=== PATIENT | female | born 1980 | race Asian ===

== ENCOUNTER 2021-06-16 09:00 | Emergency (ER) | payer OTHER ==
[~2021-06-16] VITALS: Ht 154.9 cm; Wt 90.9 kg
[2021-06-16 09:37] LABS: BASOPHILS % (AUTO) 0.5 % (0.0-2.0); HEMATOCRIT 43.3 % (36-46); HEMOGLOBIN 14.4 g/dL (12.0-16.0); LYMPHOCYTES # (AUTO) 2.1 K/uL (1.0-4.8); LYMPHOCYTES % (AUTO) 24.7 % (22.0-44.0); MEAN CORPUSCULAR HEMOGLOBIN 28.8 pg (26.0-34.0); MEAN CORPUSCULAR HGB CONC 33.2 G/dL (31.0-37.0); MEAN CORPUSCULAR VOLUME 87 fL (80-100); MONOCYTES # (AUTO) 0.5 K/uL (0.1-1.0); NEUTROPHILS # (AUTO) 5.7 K/uL (1.8-7.7); NEUTROPHILS % (AUTO) 66.8 % (40.0-70.0); PLATELET COUNT (AUTO) 351 K/uL (150-450); RED BLOOD CELL COUNT(AUTO) 4.99 MIL/uL (4.00-5.20)
[2021-06-16 10:52] LABS: FREE T4 (FREE THYROXINE) 0.88 ng/dL (0.76-1.46); THYROID STIMULATING HORMONE 4.73 uIU/mL (0.36-3.74)
[2021-06-16 11:34] LABS: ANION GAP 11 mmol/L (8-16); CALCIUM, TOTAL 9.4 mg/dL (8.8-10.5); CARBON DIOXIDE 28 mmol/L (22-29); CHLORIDE 101 mmol/L (98-107); CREATININE 0.89 mg/dL (0.60-1.30); GLOMERULAR FILTR. RATE CALC > 60 mL/min (>60); GLUCOSE,RANDOM 168 mg/dL (70-110); POTASSIUM 3.9 mmol/L (3.5-5.1); SODIUM SERUM 140 mmol/L (136-145); UREA NITROGEN, BLOOD 11 mg/dL (7-18)
[2021-06-16 11:51] LABS: ALANINE AMINOTRANSFERASE 41 U/L (12-78); ALBUMIN 3.9 g/dL (3.4-5.0); ALKALINE PHOSPHATASE 80 U/L (46-116); ASPARTATE AMINOTRANSFERASE 25 U/L (15-37); BILIRUBIN,TOTAL 0.4 mg/dL (0.1-1.0); TOTAL PROTEIN, SERUM 8.4 g/dL (6.4-8.2)
[2021-06-16] MEDS ORDERED: CloNIDine HCL 0.1 MG TABLET PO ONE ×2 (12:30→13:45)
[2021-06-16] MEDS ORDERED: AmLODIPine BESYLATE 5 MG TABLET PO ONE (12:30)
[2021-06-16 14:39] VITALS: BP 188/84
== END 2021-06-16 14:39 | disposition home or self-care (01) ==
LOC: EMS 09:03
DX: I10 Essential (primary) hypertension (principal); F17.210 Nicotine dependence, cigarettes, uncomplicated; Z85.72 Personal history of non-Hodgkin lymphomas; Z87.898 Personal history of other specified conditions
CPT/HCPCS: 80053; 84439; 84443; 84703; 85025; 93005; 99285

== ENCOUNTER 2021-06-16 15:56 | Inpatient (IN) | payer OTHER ==
[~2021-06-16] VITALS: Ht 154.9 cm; Wt 90.6 kg
[2021-06-16 16:56] LABS: BASOPHILS % (AUTO) 0.4 % (0.0-2.0); EOSINOPHILS % (AUTO) 1.9 % (1.0-6.0); HEMATOCRIT 44.3 % (36-46); HEMOGLOBIN 14.5 g/dL (12.0-16.0); LYMPHOCYTES % (AUTO) 26.7 % (22.0-44.0); MEAN CORPUSCULAR HEMOGLOBIN 28.7 pg (26.0-34.0); MEAN CORPUSCULAR HGB CONC 32.8 G/dL (31.0-37.0); MEAN CORPUSCULAR VOLUME 88 fL (80-100); PLATELET COUNT (AUTO) 344 K/uL (150-450); RED BLOOD CELL COUNT(AUTO) 5.06 MIL/uL (4.00-5.20); RED CELL DISTRIBUTION WIDTH 14.1 % (11.5-14.5)
[2021-06-16 16:57] LABS: LYMPHOCYTES # (AUTO) 2.4 K/uL (1.0-4.8); MONOCYTES # (AUTO) 0.5 K/uL (0.1-1.0); NEUTROPHILS # (AUTO) 6.1 K/uL (1.8-7.7)
[2021-06-16] MEDS ORDERED: SODIUM CHLORIDE 0.9% 100 ML ONE (17:00)
[2021-06-16] MEDS ORDERED: IOHEXOL 350 MG/ML 100 ML VIAL ONE (17:00)
[2021-06-16 17:09] LABS: ANION GAP 8 mmol/L (8-16); CALCIUM, TOTAL 9.8 mg/dL (8.8-10.5); CARBON DIOXIDE 28 mmol/L (22-29); CHLORIDE 100 mmol/L (98-107); CREATININE 1.05 mg/dL (0.60-1.30); GLOMERULAR FILTR. RATE CALC 59 mL/min (>60); GLUCOSE,RANDOM 297 mg/dL (70-110); POTASSIUM 3.7 mmol/L (3.5-5.1); SODIUM SERUM 136 mmol/L (136-145); UREA NITROGEN, BLOOD 11 mg/dL (7-18)
[2021-06-16 17:10] LABS: PROTHROMBIN TIME 10.5 SEC (9.4-11.6)
[2021-06-16] MEDS ORDERED: SODIUM CHLORIDE 0.9% 1,000 ML IV ONE (17:15)
[2021-06-16] MEDS ORDERED: LABETALOL HCL 5 MG/ML 20 ML VIAL IVP ONE (17:15)
[2021-06-16 17:19] LABS: ALANINE AMINOTRANSFERASE 40 U/L (12-78); ALBUMIN 3.9 g/dL (3.4-5.0); ALKALINE PHOSPHATASE 82 U/L (46-116); ASPARTATE AMINOTRANSFERASE 26 U/L (15-37); BILIRUBIN,TOTAL 0.4 mg/dL (0.1-1.0); HCG,QUANTITATIVE < 1 mIU/mL (0-6); TOTAL PROTEIN, SERUM 8.4 g/dL (6.4-8.2)
[2021-06-16] MEDS ORDERED: ASPIRIN 325 MG TABLET PO ONE (17:45)
[2021-06-16 17:52] LABS: COVID AG,FIA SOURCE NASOPHARYNGEAL
[2021-06-16] MEDS ORDERED: ACETAMINOPHEN 325 MG TABLET PO PRN (21:15)
[2021-06-16] MEDS ORDERED: INSULIN LISPRO 100 UNITS/ML SQ PRN (21:15)
[2021-06-16] MEDS ORDERED: MAGNESIUM HYDROXIDE SUSPENSION 30 ML UDCUP PO PRN (21:15)
[2021-06-16] MEDS ORDERED: ATORVASTATIN CALCIUM 20 MG TABLET PO SCH (21:15)
[2021-06-16] MEDS ORDERED: DEXTROSE 50%-WATER 25 GM/50 ML SYRINGE IVP PRN (21:15)
[2021-06-16] MEDS ORDERED: LISINOPRIL 10 MG TABLET PO SCH ×3 (21:30)
[2021-06-17] MEDS: HEPARIN SODIUM,PORCINE 5,000 UNITS/ML VIAL SQ SCH ×4 (00:03→23:20)
[2021-06-17 03:14] LABS: CHOL/HDL RATIO 5.4 (3.9-5.7); CHOLESTEROL 242 mg/dL (131-200); HDL CHOLESTEROL 45 mg/dL (40-60); LDL CHOL (CALC.) 153 mg/dL (0-130); TRIGLYCERIDES 221 mg/dL (15-150)
[2021-06-17] MEDS: FAMOTIDINE 20 MG TABLET PO SCH (08:04)
[2021-06-17] MEDS: ASPIRIN 81 MG CHEWABLE TABLET PO SCH (08:04)
[2021-06-17] MEDS ORDERED: LORazepam 2 MG/ML VIAL IVP ONE (08:45)
[2021-06-17] MEDS: AmLODIPine BESYLATE 5 MG TABLET PO SCH (09:18)
[2021-06-17] MEDS: ATORVASTATIN CALCIUM 20 MG TABLET PO SCH (09:18)
[2021-06-17] MEDS: INSULIN LISPRO 100 UNITS/ML SQ SCH ×3 (11:08→20:37)
[2021-06-17 11:13] LABS: GLUCOMETER DEV NAME(LOC) ERT.5; GLUCOSE,POINT OF CARE 191 MG/DL (70-110)
[2021-06-17 15:15] VITALS: BP 178/92
[2021-06-17 19:57] VITALS: BP 145/75
[2021-06-17] MEDS ORDERED: LISINOPRIL 20 MG TABLET PO SCH (21:00)
[2021-06-17 23:58] VITALS: BP 147/80
[2021-06-18 02:55] LABS: GLUCOMETER DEV NAME(LOC) 5S.2B; GLUCOSE,POINT OF CARE 185 MG/DL (70-110)
[2021-06-18 03:46] VITALS: BP 149/96
[2021-06-18] MEDS: INSULIN LISPRO 100 UNITS/ML SQ SCH ×2 (06:30→11:30)
[2021-06-18] MEDS: AmLODIPine BESYLATE 5 MG TABLET PO SCH (08:02)
[2021-06-18] MEDS: ASPIRIN 81 MG CHEWABLE TABLET PO SCH (08:02)
[2021-06-18] MEDS: HEPARIN SODIUM,PORCINE 5,000 UNITS/ML VIAL SQ SCH ×2 (08:02→15:20)
[2021-06-18] MEDS: FAMOTIDINE 20 MG TABLET PO SCH (08:02)
[2021-06-18 08:03] VITALS: BP 163/96
[2021-06-18] MEDS: ATORVASTATIN CALCIUM 20 MG TABLET PO SCH (08:03)
[2021-06-18 08:22] LABS: GLUCOMETER DEV NAME(LOC) 5S.2B; GLUCOSE,POINT OF CARE 134 MG/DL (70-110)
[2021-06-18 12:11] VITALS: BP 156/95
[2021-06-18 12:42] LABS: GLUCOMETER DEV NAME(LOC) 5S.1; GLUCOSE,POINT OF CARE 133 MG/DL (70-110)
[2021-06-18] MEDS ORDERED: LISI-894 PO (12:46)
[2021-06-18] MEDS ORDERED: METF-1211 PO (12:48)
[2021-06-18] MEDS ORDERED: AMLO-258 PO (12:49)
[2021-06-18] MEDS ORDERED: LANC-893 TP (12:59)
[2021-06-18] MEDS ORDERED: LANC1COM7 (13:04)
[2021-06-18] MEDS ORDERED: IBUPROFEN 800 MG TABLET PO ONE (15:15)
[2021-06-18 15:57] VITALS: BP 162/95
[2021-06-18 16:25] VITALS: BP 159/94
[2021-06-20 12:03] LABS: GLUCOMETER DEV NAME(LOC) 5N.3; GLUCOSE,POINT OF CARE 113 MG/DL (70-110)
== END 2021-06-18 16:55 | disposition home or self-care (01) | DRG 93 ==
LOC: EMS 16:03 → 5S 06-17 14:39
PROVIDERS: ADMIT Internal Medicine; ATTEND Internal Medicine
DX: R20.0 Anesthesia of skin (principal); E11.65 Type 2 diabetes mellitus with hyperglycemia; E66.01 Morbid (severe) obesity due to excess calories; F17.210 Nicotine dependence, cigarettes, uncomplicated; F40.240 Claustrophobia; Z20.822 Contact with and (suspected) exposure to COVID-19; E78.5 Hyperlipidemia, unspecified; I10 Essential (primary) hypertension; Z92.21 Personal history of antineoplastic chemotherapy; Z92.3 Personal history of irradiation; Z68.37 Body mass index [BMI] 37.0-37.9, adult; Z85.72 Personal history of non-Hodgkin lymphomas; Z90.49 Acquired absence of other specified parts of digestive tract
CPT/HCPCS: 70496; 70498; 70553; 71045; 80053; 80061; 82962; 83036; 83880; 84484; 84702; 85025; 85610; 85730; 86850; 86900; 86901; 92610; 93005; 93306; 93880; 99291; J1644; J1815; J2060; J3490; J7030; J7050; Q9967; 36415-L1; 36415-TC; 70450; 70450-TC

== ENCOUNTER 2021-06-19 23:04 | Inpatient (IN) | payer OTHER ==
[~2021-06-19] VITALS: Ht 154.9 cm; Wt 87.3 kg
[~2021-06-19 23:04] MED LIST: AMLO-258 PO; LANC-893 TP; LANC1COM7; LISI-894 PO; METF-1211 PO
[2021-06-19 23:43] LABS: BASOPHILS % (AUTO) 0.5 % (0.0-2.0); HEMATOCRIT 45.3 % (36-46); HEMOGLOBIN 14.8 g/dL (12.0-16.0); LYMPHOCYTES # (AUTO) 2.3 K/uL (1.0-4.8); MEAN CORPUSCULAR HEMOGLOBIN 28.3 pg (26.0-34.0); MEAN CORPUSCULAR HGB CONC 32.6 G/dL (31.0-37.0); MEAN CORPUSCULAR VOLUME 87 fL (80-100); MONOCYTES # (AUTO) 0.5 K/uL (0.1-1.0); MONOCYTES % (AUTO) 4.5 % (2.0-9.0); NEUTROPHILS # (AUTO) 8.9 K/uL (1.8-7.7); PLATELET COUNT (AUTO) 378 K/uL (150-450); RED BLOOD CELL COUNT(AUTO) 5.22 MIL/uL (4.00-5.20); RED CELL DISTRIBUTION WIDTH 13.7 % (11.5-14.5)
[2021-06-19 23:44] LABS: COVID AG,FIA SOURCE NASOPHARYNGEAL
[2021-06-19 23:53] LABS: ANION GAP 9 mmol/L (8-16); CARBON DIOXIDE 29 mmol/L (22-29); CHLORIDE 101 mmol/L (98-107); CREATININE 1.07 mg/dL (0.60-1.30); GLOMERULAR FILTR. RATE CALC 57 mL/min (>60); GLUCOSE,RANDOM 159 mg/dL (70-110); POTASSIUM 3.8 mmol/L (3.5-5.1); SODIUM SERUM 139 mmol/L (136-145); UREA NITROGEN, BLOOD 16 mg/dL (7-18)
[2021-06-20] LABS: INR 0.9 (0.9-1.1); PROTHROMBIN TIME 10.1 SEC (9.4-11.6)
[2021-06-20 00:04] LABS: ALANINE AMINOTRANSFERASE 65 U/L (12-78); ALBUMIN 4.3 g/dL (3.4-5.0); ALKALINE PHOSPHATASE 85 U/L (46-116); ASPARTATE AMINOTRANSFERASE 45 U/L (15-37); BILIRUBIN,TOTAL 0.4 mg/dL (0.1-1.0); HCG,QUANTITATIVE < 1 mIU/mL (0-6); TOTAL PROTEIN, SERUM 8.7 g/dL (6.4-8.2)
[2021-06-20 00:15] LABS: APPEARANCE,URINE CLEAR (CLEAR); BILIRUBIN,URINE NEGATIVE (NEGATIVE); GLUCOSE, URINE (UA) NEGATIVE (NEGATIVE); KETONES,URINE NEGATIVE (NEGATIVE); LEUKOCYTE ESTERASE ,URINE TRACE (NEGATIVE); NITRATE,URINE NEGATIVE (NEGATIVE); OCCULT BLOOD,URINE LARGE (NEGATIVE); PH,URINE 5.5 (5.0-8.0); PROTEIN,URINE TRACE (NEGATIVE); UROBILINOGEN,URINE 0.2 mg/dL (<=1.0)
[2021-06-20 00:18] LABS: RBC,URINE 26-50 /HPF (0-2); WBC,URINE 0-2 /HPF (0-5)
[2021-06-20 00:19] LABS: AMPHET/METH SCREEN,URINE NEGATIVE (NEGATIVE); BACTERIA,URINE Few /HPF (None Seen); BARBITURATE SCREEN, URINE NEGATIVE (NEGATIVE); BENZODIAZEPINES SCREEN,URINE NEGATIVE (NEGATIVE); CANNABINOID SCREEN,URINE NEGATIVE (NEGATIVE); COCAINE SCREEN,URINE NEGATIVE (NEGATIVE); METHADONE SCREEN, URINE NEGATIVE (NEGATIVE); OPIATE SCREEN,URINE NEGATIVE (NEGATIVE)
[2021-06-20 00:20] LABS: PHENCYCLIDINE SCREEN,URINE NEGATIVE (NEGATIVE)
[2021-06-20] MEDS ORDERED: ASPIRIN 325 MG DR TABLET PO ONE (00:45)
[2021-06-20] MEDS ORDERED: ONDANSETRON HCL 4 MG/2 ML VIAL IVP PRN (01:15)
[2021-06-20] MEDS ORDERED: ACETAMINOPHEN 325 MG TABLET PO PRN (01:15)
[2021-06-20] MEDS ORDERED: DEXTROSE 50%-WATER 25 GM/50 ML SYRINGE IVP PRN (01:15)
[2021-06-20 02:44] VITALS: BP 156/80
[2021-06-20] MEDS: ATORVASTATIN CALCIUM 20 MG TABLET PO SCH (05:43)
[2021-06-20] MEDS: INSULIN LISPRO 100 UNITS/ML SQ PRN ×2 (05:47→17:27)
[2021-06-20] MEDS ORDERED: HEPARIN SODIUM,PORCINE 5,000 UNITS/ML VIAL SQ SCH (08:00)
[2021-06-20 08:11] VITALS: BP 154/80
[2021-06-20] MEDS ORDERED: ENALAPRILAT DIHYDRATE 1.25 MG/ML VIAL IVP PRN (11:00)
[2021-06-20 11:23] LABS: BASOPHILS % (AUTO) 0.7 % (0.0-2.0); EOSINOPHILS % (AUTO) 2.2 % (1.0-6.0); HEMATOCRIT 42.1 % (36-46); HEMOGLOBIN 13.8 g/dL (12.0-16.0); MEAN CORPUSCULAR HEMOGLOBIN 28.6 pg (26.0-34.0); MEAN CORPUSCULAR HGB CONC 32.7 G/dL (31.0-37.0); MEAN CORPUSCULAR VOLUME 87 fL (80-100); MONOCYTES # (AUTO) 0.5 K/uL (0.1-1.0); MONOCYTES % (AUTO) 5.4 % (2.0-9.0); NEUTROPHILS # (AUTO) 5.8 K/uL (1.8-7.7); NEUTROPHILS % (AUTO) 68.7 % (40.0-70.0); PLATELET COUNT (AUTO) 361 K/uL (150-450); RED BLOOD CELL COUNT(AUTO) 4.81 MIL/uL (4.00-5.20)
[2021-06-20 11:33] LABS: ANION GAP 12 mmol/L (8-16); CALCIUM, TOTAL 9.4 mg/dL (8.8-10.5); CARBON DIOXIDE 30 mmol/L (22-29); CHLORIDE 102 mmol/L (98-107); CREATININE 0.92 mg/dL (0.60-1.30); GLOMERULAR FILTR. RATE CALC > 60 mL/min (>60); GLUCOSE,RANDOM 177 mg/dL (70-110); POTASSIUM 3.7 mmol/L (3.5-5.1); SODIUM SERUM 144 mmol/L (136-145); UREA NITROGEN, BLOOD 13 mg/dL (7-18)
[2021-06-20 11:40] LABS: ALANINE AMINOTRANSFERASE 79 U/L (12-78); ALBUMIN 3.7 g/dL (3.4-5.0); ALKALINE PHOSPHATASE 75 U/L (46-116); ASPARTATE AMINOTRANSFERASE 61 U/L (15-37); BILIRUBIN,TOTAL 0.5 mg/dL (0.1-1.0); TOTAL PROTEIN, SERUM 7.9 g/dL (6.4-8.2)
[2021-06-20 11:46] VITALS: BP 160/80
[2021-06-20 12:04] LABS: GLUCOMETER DEV NAME(LOC) 5N.3; GLUCOSE,POINT OF CARE 144 MG/DL (70-110)
[2021-06-20 14:09] LABS: GLUCOMETER DEV NAME(LOC) 5S.1; GLUCOSE,POINT OF CARE 110 MG/DL (70-110)
[2021-06-20 16:18] VITALS: BP 166/96
[2021-06-20 17:53] LABS: GLUCOMETER DEV NAME(LOC) 5S.1; GLUCOSE,POINT OF CARE 180 MG/DL (70-110)
[2021-06-20 20:07] VITALS: BP 157/97
[2021-06-21] VITALS (7 sets, daily range): BP systolic 139–154; BP diastolic 80–93
[2021-06-21 00:04] LABS: GLUCOMETER DEV NAME(LOC) 5S.1; GLUCOSE,POINT OF CARE 114 MG/DL (70-110)
[2021-06-21] MEDS: INSULIN LISPRO 100 UNITS/ML SQ PRN ×3 (06:13→21:47)
[2021-06-21 06:18] LABS: GLUCOMETER DEV NAME(LOC) 5N.3; GLUCOSE,POINT OF CARE 141 MG/DL (70-110)
[2021-06-21 07:39] LABS: BASOPHILS % (AUTO) 0.6 % (0.0-2.0); EOSINOPHILS % (AUTO) 2.5 % (1.0-6.0); HEMATOCRIT 44.7 % (36-46); HEMOGLOBIN 14.8 g/dL (12.0-16.0); LYMPHOCYTES # (AUTO) 3.2 K/uL (1.0-4.8); LYMPHOCYTES % (AUTO) 35.8 % (22.0-44.0); MEAN CORPUSCULAR HEMOGLOBIN 29.2 pg (26.0-34.0); MEAN CORPUSCULAR HGB CONC 33.1 G/dL (31.0-37.0); MEAN CORPUSCULAR VOLUME 88 fL (80-100); MONOCYTES # (AUTO) 0.5 K/uL (0.1-1.0); MONOCYTES % (AUTO) 5.8 % (2.0-9.0); NEUTROPHILS # (AUTO) 4.9 K/uL (1.8-7.7); NEUTROPHILS % (AUTO) 55.3 % (40.0-70.0); PLATELET COUNT (AUTO) 365 K/uL (150-450); RED BLOOD CELL COUNT(AUTO) 5.07 MIL/uL (4.00-5.20); RED CELL DISTRIBUTION WIDTH 14.1 % (11.5-14.5)
[2021-06-21 07:54] LABS: ALANINE AMINOTRANSFERASE 95 U/L (12-78); ALKALINE PHOSPHATASE 77 U/L (46-116); ANION GAP 6 mmol/L (8-16); ASPARTATE AMINOTRANSFERASE 57 U/L (15-37); BILIRUBIN,TOTAL 0.5 mg/dL (0.1-1.0); CALCIUM, TOTAL 9.9 mg/dL (8.8-10.5); CARBON DIOXIDE 30 mmol/L (22-29); CHLORIDE 103 mmol/L (98-107); CHOL/HDL RATIO 4.1 (3.9-5.7); CHOLESTEROL 177 mg/dL (131-200); CREATININE 0.95 mg/dL (0.60-1.30); GLOMERULAR FILTR. RATE CALC > 60 mL/min (>60); GLUCOSE,RANDOM 131 mg/dL (70-110); HDL CHOLESTEROL 43 mg/dL (40-60); LDL CHOL (CALC.) 93 mg/dL (0-130); POTASSIUM 4.5 mmol/L (3.5-5.1); SODIUM SERUM 139 mmol/L (136-145); TOTAL PROTEIN, SERUM 8.5 g/dL (6.4-8.2); TRIGLYCERIDES 206 mg/dL (15-150); UREA NITROGEN, BLOOD 14 mg/dL (7-18)
[2021-06-21] MEDS ORDERED: GADOTERATE MEGLUMINE 10 MMOL/20 ML VIAL IVP ONE (08:26)
[2021-06-21] MEDS: CLOPIDOGREL BISULFATE 75 MG TABLET PO SCH (09:35)
[2021-06-21] MEDS: ASPIRIN 81 MG CHEWABLE TABLET PO SCH (09:35)
[2021-06-21] MEDS: ATORVASTATIN CALCIUM 20 MG TABLET PO SCH (09:35)
[2021-06-21 11:19] LABS: GLUCOMETER DEV NAME(LOC) 5N.3; GLUCOSE,POINT OF CARE 154 MG/DL (70-110)
[2021-06-21] MEDS ORDERED: CLOP75TA60 PO (14:48)
[2021-06-21] MEDS ORDERED: ASPI-1450 PO (14:48)
[2021-06-21 18:27] LABS: GLUCOMETER DEV NAME(LOC) 5N.1C; GLUCOSE,POINT OF CARE 127 MG/DL (70-110)
[2021-06-22 00:40] LABS: GLUCOMETER DEV NAME(LOC) 5N.1C; GLUCOSE,POINT OF CARE 177 MG/DL (70-110)
[2021-06-22 04:53] VITALS: BP 158/104
[2021-06-22 05:44] LABS: CHOL/HDL RATIO 4.2 (3.9-5.7)
[2021-06-22] MEDS: INSULIN LISPRO 100 UNITS/ML SQ PRN (06:28)
[2021-06-22 06:55] LABS: GLUCOMETER DEV NAME(LOC) 5S.1; GLUCOSE,POINT OF CARE 144 MG/DL (70-110)
[2021-06-22 07:14] VITALS: BP 150/86
[2021-06-22] MEDS: ASPIRIN 81 MG CHEWABLE TABLET PO SCH (08:43)
[2021-06-22] MEDS: CLOPIDOGREL BISULFATE 75 MG TABLET PO SCH (08:43)
[2021-06-22] MEDS: ATORVASTATIN CALCIUM 20 MG TABLET PO SCH (08:44)
[2021-06-22 11:30] VITALS: BP 181/118
[2021-06-22 11:49] VITALS: BP 152/88
[2021-06-22 15:24] VITALS: BP 136/76
[2021-06-22] MEDS ORDERED: SODIUM CHLORIDE 0.9% 250 ML IV ONE (16:13)
[2021-06-22 17:06] LABS: GLUCOMETER DEV NAME(LOC) 5N.1C; GLUCOSE,POINT OF CARE 128 MG/DL (70-110)
[2021-06-23 00:47] LABS: GLUCOMETER DEV NAME(LOC) 5S.1; GLUCOSE,POINT OF CARE 116 MG/DL (70-110)
== END 2021-06-22 18:10 | disposition home or self-care (01) | DRG 93 ==
LOC: EMS 23:05 → 5S 06-20 01:43
PROVIDERS: ADMIT Internal Medicine; ATTEND Internal Medicine
DX: R20.0 Anesthesia of skin (principal); I10 Essential (primary) hypertension; E66.01 Morbid (severe) obesity due to excess calories; E11.9 Type 2 diabetes mellitus without complications; F17.210 Nicotine dependence, cigarettes, uncomplicated; Z20.822 Contact with and (suspected) exposure to COVID-19; I66.01 Occlusion and stenosis of right middle cerebral artery; N92.0 Excessive and frequent menstruation with regular cycle; E78.5 Hyperlipidemia, unspecified; H54.62 Unqualified visual loss, left eye, normal vision right eye; Z92.3 Personal history of irradiation; Z92.21 Personal history of antineoplastic chemotherapy; Z68.36 Body mass index [BMI] 36.0-36.9, adult; Z79.899 Other long term (current) drug therapy; Z71.6 Tobacco abuse counseling
CPT/HCPCS: 70450; 70544; 70553; 80053; 80061; 81001; 82962; 84484; 84702; 85025; 85610; 85730; 86038; 87081; 92610; 93005; 93880; 97161; 97166; 99291; J1644; J2405; J7050; Q9967